=== PATIENT | male | born 1955 | race Caucasian/White ===

== ENCOUNTER 2022-04-20 16:08 | Day surgery (SDC) | payer MEDICARE, SELFPAY ==
[2022-04-20] VITALS (13 sets, daily range): BP systolic 154–174; BP diastolic 80–100; PULSE 51–69; RESP 16–18; TEMP 36.6; O2SAT 93–99; BMI 25.5
--- NOTE | 2022-04-20 16:20 | ECG_ITS ---
APPROVED REPORT Exam: Resting ECG HR:61 bpm ECG Measurements Heart Rate 61 AXES VT 90 P 80 QRSd 92 QRS -2 QT 399 T -14 QTc 402 Conclusion SINUS RHYTHM WITH SHORT VT INTERVAL SEPTAL MYOCARDIAL INFARCTION , PROBABLY OLD [40+ ms Q WAVE IN V1/V2] ST DEPRESSION, CONSIDER SUBENDOCARDIAL INJURY [0.1+ mV ST DEPRESSION] ABNORMAL ECG UNCONFIRMED REPORT Electronically signed by : Rolly Hollingsworth MD 04/21/2022 08:10:59
--- NOTE | 2022-04-20 16:30 | HMH.EDGENADL ---
Discharge Plan Disposition Patient Disposition: Admitted As Inpatient Condition: Fair Clinical Impressions Clinical Impression: Unstable angina pectoris Discharge ED Provider: Nick Souza General Adult HPI General Chief complaint: Chest Pain Stated complaint: SOA, painful breathing, cough Time Seen by Provider: 04/20/22 17:15 Mode of Arrival: Ambulatory Source of Information: Patient and Spouse Limitations: No Limitations Description of Symptoms (Recalled from ER Triage Doc. by RN): Pt presents with midsternum chest pain that worsens with exertion/movement/deep breathing that radiates to bilateral UE x 1 week. Hx of Afib. +Asa 81 mg Pt denies chest pain at this time. History of Present Illness HPI narrative: Patient states that for 1 week he has had intermittent chest discomfort that feels like a burning sensation in his bronchial tubes that goes up to his chest and down both arms and into his back. Usually occurs with activity but he is also had it with rest. He says usually he is able to take it easy and the pain will go away within about 5 minutes, but today he has had the pain off and on all day long. He is does not currently have any chest discomfort, says that his most recent episode went away just before coming to the emergency department. He says it is not associated with shortness of breath, nausea, or diaphoresis. He says that he has a prior history of atrial fibrillation. He does not currently see a intermediate accountant. He takes low-dose aspirin daily. He does not have diabetes, hypertension, or hyperlipidemia. He says he has been assigned to Dr. Power as his primary care provider, but has never seen him. Related Data Home Medications Medication Instructions Recorded Confirmed aspirin 81 mg capsule [address] [facility] 04/20/22 04/20/22 Allergies Allergy/AdvReac Type Severity Reaction Status Date / Time No Known Allergies Allergy Verified 04/20/22 16:53 [facility] Disclaimer: The information contained in this section may have been updated after the patient was seen, as this information can be updated by other users. Social History Smoking Status: Former smoker ROS Obtained: Yes Systems reviewed as appropriate & no additional complaints except as documented Constitutional Constitutional: Denies fever(s), Denies headache(s) and Denies weakness ENT Ears, Nose, Mouth, and Throat: Denies headache(s), Denies nasal discharge and Denies sore throat Cardiovascular Cardiovascular: Reports chest pain, Denies diaphoresis and Reports radiating jaw, neck or arm pain Respiratory Respiratory: Denies shortness of breath and Denies cough Gastrointestinal Gastrointestingal: Denies abdominal pain, constipation, diarrhea, nausea or vomiting Genitourinary Male Genitourinary: Denies difficulty urinating and Denies flank pain Musculoskeletal Musculoskeletal: Denies numbness Neurologic Neurologic: Denies headache(s), Denies numbness and Denies weakness Physical Exam General General appearance: alert and in no apparent distress Head Head exam: atraumatic and normocephalic Eye Eye exam: Present normal appearance and EOMI ENT ENT exam: Present mucous membranes moist Neck Neck exam: Present normal inspection and trachea midline Chest Chest inspection: Present normal inspection and symmetric chest wall rise Respiratory Respiratory exam: Present normal lung sounds bilaterally; Absent respiratory distress Cardiovascular Cardiovascular exam: Present regular rate, normal rhythm, normal heart sounds and other (Peripheral pulses 2+ all 4 extremities) Abdominal Exam Abdominal exam: Present soft and normal bowel sounds; Absent distention, tenderness, guarding, rebound or rigidity Extremities Exam Extremities exam: Present normal inspection Neurological Exam Neurological exam: Present alert and oriented X3 Psychiatric Psychiatric exam: Present normal affect and normal mood Skin Skin exam: Present warm and dry
--- NOTE | 2022-04-20 16:47 | PC.NURSE ---
rounded on pt no complaints at this time, @ [facility]
--- NOTE | 2022-04-20 16:52 | XR_ITS ---
PROCEDURE INFORMATION: Exam: XR Chest Exam date and time: 04/20/2022 4:52 PM Age: 66 years old Clinical indication: Pain; On breathing; Additional info: Chest pain when active, PT states the pain radiates in bilat arms x 1 wk. Former smoker. TECHNIQUE: Imaging protocol: Radiologic exam of the chest. Views: 2 views. COMPARISON: No relevant prior studies available. FINDINGS: Lungs: Lungs are clear. No consolidation or pulmonary edema. Pleural spaces: No pleural effusion. No pneumothorax. Heart/Mediastinum: Cardiomediastinal silhouette is normal. Bones/joints: No acute abnormality. IMPRESSION: No acute cardiopulmonary disease.
[2022-04-20 17:04] LABS: Basophils # 0.1 K/mm3 (0-0.2); Basophils % 0.9 % (0.1-2.0); Eosinophils # 0.1 K/mm3 (0.0-0.4); Eosinophils % 1.7 % (0.1-12.0); Hemoglobin 15.7 g/dL (14.1-18.0); Lymphocytes # 2.1 K/mm3 (0.7-4.5); Lymphocytes % 31.2 % (10-50); Mean Corpuscular HGB Conc 33.3 g/dL (31.8-35.4); Mean Corpuscular Hemoglobin 28.7 pg (27.0-31.2); Mean Corpuscular Volume 86.2 fl (80-94); Monocytes # 0.4 K/mm3 (0.1-1.0); Monocytes % 6.1 % (1.7-9.3); Neutrophils % 60.2 % (37.0-80.0); Platelet Count 192 K/mm3 (142-424); Red Blood Count 5.45 M/mm3 (4.60-6.20); Red Cell Distribution Width 13.4 % (11.5-17.5); White Blood Count 6.7 K/mm3 (4.8-10.8)
[2022-04-20 17:17] LABS: Chloride 106 mmol/L (98-107); Sodium 140 mmol/L (136-145)
[2022-04-20 17:20] LABS: Blood Urea Nitrogen 18 mg/dl (9-20); Calcium 9.2 mg/dl (8.4-10.2); Carbon Dioxide 24 mmol/L (22.0-30.0); Creatinine Clearance Estimated 75 mL/min (50-200); Estimated Glomerular Filt Rate 75 ml/min (>60); GFR (African American) 90 ML/MIN (>60); Glucose 102 mg/dl (74-100)
[2022-04-20 17:34] LABS: Coronavirus 19, PCR Not Detected (NotDetected); Influenza A, PCR Not Detected (NotDetected); Influenza B, PCR Not Detected (NotDetected)
[2022-04-20 18:07] LABS: Troponin I 0.01 ng/ml (0.00-0.034)
--- NOTE | 2022-04-20 18:21 | PC.NURSE ---
MOHINDER PARIKH speaking with Dr. Cowan
--- NOTE | 2022-04-20 19:00 | PC.NURSE ---
HS called collaborative physician, no stemi noted at this time. taking pt to the collaborative physician mo
--- NOTE | 2022-04-20 19:10 | PC.NURSE ---
1845- [facility] pumping supervisor contacted by Dr Cowan and would like the quality lab assoc team called in at this time. Paged quality lab assoc team lens and frames prescription clerk at this time. 184- Dominique BENITEZ returned call at this time 184- José BENITEZ returned call at this time 184- La Thompson returned call at this time
--- NOTE | 2022-04-20 19:19 | PC.NURSE ---
Spoke with cardiac cath lab manager nurse regarding preparation of patient. Pt placed in gown. Personal belongings placed in bag with patient sticker. Bilateral femoral and right radial sites prepped. PIV 20g Bilateral AC. Informed consent not obtained at this time, awaiting MD to report to bedside to discuss procedure, risks, & benefits.
[2022-04-20 20:02] LABS: Activated Partial Thrombo Time 25.6 seconds (22.8-30.6); INR 0.95 (0.9-1.1); Prothrombin Time 10.3 seconds (10.1-12.5)
[2022-04-20 20:16] LABS: CATHL Activated Clotting Time 254 SEC (74-125)
== END 2022-04-20 19:45 ==
LOC: ER 19:42 → SDC 19:46 → 2ND 20:21 → SDC 05-14 03:43
PROVIDERS: Emergency Provider Emergency Medicine; PCP Emergency Medicine; Visit Provider Internal Medicine
DX: I25.110 Atherosclerotic heart disease of native coronary artery with unstable angina pectoris (principal); I48.91 Unspecified atrial fibrillation; Z20.822 Contact with and (suspected) exposure to COVID-19
CPT/HCPCS: 71046; 80048; 84484; 85025; 85347; 85610; 85730; 93005; 93458; 99152; 99285; C1725; C1769; C9803; J1644; Q9967; U0003; U0005

== ENCOUNTER 2022-06-08 09:53 | Outpatient (RCR) | payer MEDICARE, SELFPAY | END 2022-06-08 23:59 | disposition home or self-care (01) | LOC: PT 09:53 | PROVIDERS: Visit Provider Thoracic Surgery (Cardiothoracic Vascular Surgery) | DX: I25.10 Atherosclerotic heart disease of native coronary artery without angina pectoris (principal); Z95.1 Presence of aortocoronary bypass graft ==

== ENCOUNTER → 2022-09-28 14:20 | Outpatient (CLI) | payer MEDICARE, SELFPAY ==
--- NOTE | 2022-09-28 14:27 | CA_ITS ---
APPROVED REPORT EXAM: Comprehensive 2D, Doppler, and color-flow Echocardiogram First Leveler: Chantel Dickson RT(R) Ht: 5 ft 7 in Wt: 153lbs BSA: 1.80 BP: 110/44 mmHg Indications: SOA, ex smoker, HTN, hyperlipidemia, CAD, AFIB, CABG, pleural effusion 2D Dimensions LVOT 1.92 cm (M/F) 1.5-2.5 LVEF (Almonte's) 68.40 % M: 52 - 72 LV Volume 108.70 mL M: 62 - 150 LV Volume Index 60.06 mL/m2 M: 34 - 74 LA Volume 59.20 mL LA Volume Index 32.71 mL/m2 (M/F) 16-34 M-Mode Dimensions RVDd 3.61 cm (0.9-2.6) LA Diam 4.42 cm (1.9-4.0) LVDd 4.90 cm (3.5-5.7) Ao Diam 3.28 cm (2.0-3.7) LVDs 3.27 cm (3.5-5.7) IVSd 0.84 cm (0.6-1.1) PWd 0.68 cm (0.6-1.1) EF (Teich) 61.70% FS 33.30% EDV (Teich) 112.80 mL ESV (Teich) 43.20 mL LV Diastology E Decel Time 200.00 (160-240 msec) E/A Ratio 3.3 MED E' 5.70 (< 7 cm/sec) E'/MED E' Ratio 18.93 (>14) LAT E' 12.50 (<10 cm/sec) E/LAT E' Ratio 8.63 (>14) Mitral Valve MV E Max Leonel. 108.00 (40-130 cm/s) MV A Velocity 33.00 (40-130 cm/s) E/A Ratio 3.29 MV Decel. Time 200.00 (160-240 ms) MV PHT 59.00 ms Pulmonary Valve PV Peak Velocity 80.00 (50-150 cm/s) Tricuspid Valve TR P. Velocity 258.00 cm/s Left Ventricle The left ventricle is normal size. The left ventricular systolic function is normal. The left ventricular ejection fraction is within the normal range. There is increased LV wall thickness. There is normal LV segmental wall motion. Diastolic function is indeterminate. LVEF is 60%. Right Ventricle The right ventricle is normal size. The right ventricular systolic function is normal. Atria The left atrium size is normal. The right atrium size is normal. Aortic Valve The aortic valve is trileaflet. The aortic valve is mildly thickened. There is no aortic valvular stenosis. Trace aortic regurgitation is present. Mitral Valve The mitral valve is normal in structure. No evidence of mitral valve stenosis. Mild mitral regurgitation. Tricuspid Valve The tricuspid valve is thin and pliable. Mild tricuspid regurgitation. RVSP is 27 mmHg + RA pressure Pulmonic Valve The pulmonary valve is normal in structure. Mild pulmonic regurgitation. Great Vessels The aortic root is normal in size. The ascending aorta is normal in size. The IVC is not well visualized. Pericardium There is no pericardial effusion. Other Information Study Quality: Fair Conclusion Normal biventricular systolic function. No significant valvular stenosis or regurgitation. Electronically signed by : Herlinda Muñoz, 09/29/2022 19:37:43
== END ==
PROVIDERS: PCP Emergency Medicine; Visit Provider Nurse Practitioner Family
DX: E78.5 Hyperlipidemia, unspecified (principal); I10 Essential (primary) hypertension; I25.10 Atherosclerotic heart disease of native coronary artery without angina pectoris; I48.0 Paroxysmal atrial fibrillation; I65.29 Occlusion and stenosis of unspecified carotid artery; Z95.1 Presence of aortocoronary bypass graft
CPT/HCPCS: 93306

== ENCOUNTER 2023-06-05 09:33 | Outpatient (CLI) | payer MEDICARE, SELFPAY ==
[2023-06-05 10:25] LABS: Basophils # 0.1 K/mm3 (0-0.2); Basophils % 0.9 % (0.1-2.0); Eosinophils # 0.2 K/mm3 (0.0-0.4); Eosinophils % 3.2 % (0.1-12.0); Hematocrit 42.8 % (42.0-52.0); Hemoglobin 14.3 g/dL (14.1-18.0); Lymphocytes # 2.1 K/mm3 (0.7-4.5); Lymphocytes % 36.9 % (10-50); Mean Corpuscular HGB Conc 33.4 g/dL (31.8-35.4); Mean Corpuscular Hemoglobin 30.8 pg (27.0-31.2); Mean Corpuscular Volume 92.3 fl (80-94); Mean Platelet Volume 9.4 fl (7.4-10.4); Monocytes # 0.4 K/mm3 (0.1-1.0); Monocytes % 6.2 % (1.7-9.3); Neutrophils % 52.8 % (37.0-80.0); Platelet Count 129 K/mm3 (142-424); Red Blood Count 4.64 M/mm3 (4.60-6.20); Red Cell Distribution Width 13.4 % (11.5-17.5); White Blood Count 5.7 K/mm3 (4.8-10.8)
[2023-06-05 10:56] LABS: Alanine Aminotransferase 28 U/L (12-78); Albumin Level 4.1 g/dl (3.5-5.0); Alkaline Phosphatase 63 U/L (38-126); Anion Gap 8.8 mEq/L (5-15); Aspartate Amino Transferase 29 U/L (17-59); Bilirubin,Direct 0.2 mg/dl (0.0-0.4); Bilirubin,Indirect 0.9 mg/dL (0.0-0.9); Bilirubin,Total 1.1 mg/dl (0.2-1.3); Bilirubin,Unconjugated 0.9 mg/dL (0.0-1.1); Blood Urea Nitrogen 15 mg/dl (9-20); Calcium 9.5 mg/dl (8.4-10.2); Carbon Dioxide 28 mmol/L (22.0-30.0); Chloride 109 mmol/L (98-107); Chol/HDL Ratio 3.5 (1-3.5); Cholesterol 138 mg/dl (140-200); Estimated Glomerular Filt Rate 96 ml/min (>60); GFR (African American) 116 ML/MIN (>60); Glucose 97 mg/dl (74-100); HDL Cholesterol 40 mg/dl (40-60); Potassium 3.8 mmoL/L (3.5-5.1); Sodium 142 mmol/L (136-145); Total Protein,Serum 6.3 g/dl (6.3-8.2); Triglycerides 159 mg/dl (30-150); VLDL Cholesterol 32 mg/dL (0-40)
[2023-06-05 11:13] LABS: Free T4 (Free Thyroxine) 0.98 ng/dl (0.78-2.19)
[2023-06-05 11:28] LABS: Thyroid Stimulating Hormone 2.02 uIU/mL (0.465-4.68)
== END 2023-06-05 23:59 | disposition home or self-care (01) ==
PROVIDERS: Visit Provider Physician Assistant
DX: E11.9 Type 2 diabetes mellitus without complications (principal); R00.1 Bradycardia, unspecified; I65.29 Occlusion and stenosis of unspecified carotid artery; I25.10 Atherosclerotic heart disease of native coronary artery without angina pectoris; Z95.1 Presence of aortocoronary bypass graft; I10 Essential (primary) hypertension; E78.5 Hyperlipidemia, unspecified; I48.0 Paroxysmal atrial fibrillation; R06.00 Dyspnea, unspecified; I11.9 Hypertensive heart disease without heart failure; I63.9 Cerebral infarction, unspecified
CPT/HCPCS: 36415; 80048; 80061; 80076; 84439; 84443; 85025

== ENCOUNTER 2023-06-29 13:01 | Outpatient (CLI) | payer MEDICARE, SELFPAY ==
[2023-06-29 13:27] LABS: Basophils # 0.1 K/mm3 (0-0.2); Basophils % 0.9 % (0.1-2.0); Eosinophils # 0.3 K/mm3 (0.0-0.4); Eosinophils % 3.6 % (0.1-12.0); Hemoglobin 13.7 g/dL (14.1-18.0); Lymphocytes # 2.4 K/mm3 (0.7-4.5); Lymphocytes % 35.5 % (10-50); Mean Corpuscular HGB Conc 33.5 g/dL (31.8-35.4); Mean Corpuscular Volume 89.5 fl (80-94); Mean Platelet Volume 9.1 fl (7.4-10.4); Monocytes # 0.5 K/mm3 (0.1-1.0); Monocytes % 7.5 % (1.7-9.3); Neutrophils # 3.6 K/mm3 (1.8-7.8); Neutrophils % 52.5 % (37.0-80.0); Platelet Count 144 K/mm3 (142-424); Red Blood Count 4.58 M/mm3 (4.60-6.20); Red Cell Distribution Width 13.1 % (11.5-17.5); White Blood Count 6.9 K/mm3 (4.8-10.8)
[2023-06-29 15:02] LABS: Alanine Aminotransferase 35 U/L (12-78); Albumin Level 4.2 g/dl (3.5-5.0); Alkaline Phosphatase 69 U/L (38-126); Aspartate Amino Transferase 35 U/L (17-59); Bilirubin,Direct 0.1 mg/dl (0.0-0.4); Bilirubin,Indirect 0.6 mg/dL (0.0-0.9); Bilirubin,Total 0.7 mg/dl (0.2-1.3); Bilirubin,Unconjugated 0.6 mg/dL (0.0-1.1); Cholesterol 145 mg/dl (140-200); Total Protein,Serum 6.4 g/dl (6.3-8.2); Triglycerides 213 mg/dl (30-150); VLDL Cholesterol 43 mg/dL (0-40)
[2023-06-29 15:13] LABS: Direct LDL Cholesterol 62.54 mg/dL (100-129)
[2023-06-29 16:58] LABS: Chol/HDL Ratio 2.7 (1-3.5); HDL Cholesterol 53 mg/dl (40-60)
== END 2023-06-29 23:59 | disposition home or self-care (01) ==
PROVIDERS: Visit Provider Physician Assistant
DX: I11.9 Hypertensive heart disease without heart failure (principal); I25.10 Atherosclerotic heart disease of native coronary artery without angina pectoris; E78.5 Hyperlipidemia, unspecified; I48.0 Paroxysmal atrial fibrillation; I65.29 Occlusion and stenosis of unspecified carotid artery; Z95.1 Presence of aortocoronary bypass graft; J90 Pleural effusion, not elsewhere classified; Z87.891 Personal history of nicotine dependence
CPT/HCPCS: 36415; 80061; 80076; 85025

== ENCOUNTER 2023-07-11 09:15 | Emergency (ER) | payer MEDICARE, SELFPAY ==
[2023-07-11] VITALS (10 sets, daily range): BP systolic 100–137; BP diastolic 58–95; PULSE 60–151; RESP 12–17; TEMP 36.4–36.6; O2SAT 97–98; BMI 24.5
--- NOTE | 2023-07-11 09:14 | ECG_ITS ---
APPROVED REPORT Exam: Resting ECG HR:139 bpm ECG Measurements Heart Rate 139 AXES QRSd 89 QRS 41 QT 235 T 94 QTc 316 Conclusion ATRIAL FIBRILLATION WITH RAPID VENTRICULAR RESPONSE POSSIBLE RIGHT VENTRICULAR CONDUCTION DELAY [RSR (QR) IN V1/V2] NONSPECIFIC ST & T-WAVE ABNORMALITY ABNORMAL RHYTHM ECG Electronically signed by : ARLENE PRABHAKAR, 07/11/2023 16:11:43
--- NOTE | 2023-07-11 09:18 | XR_ITS ---
FINAL REPORT CLINICAL HISTORY: sternal chest pain, hx of afib COMPARISON: None FINDINGS: The heart size is mildly enlarged. Sternotomy wires are noted. There is no focal infiltrate or edema. There are no pleural effusions. There is no pneumothorax. There is no osseous abnormality. IMPRESSION: No acute cardiopulmonary process Reviewed, Interpreted and Dictated by Mike Zaidi MD Transcribed by Ashlie Del Cid Authenticated and [facility]
--- NOTE | 2023-07-11 09:20 | PC.NURSE ---
Dr. Vieira at [facility] for pt eval
--- NOTE | 2023-07-11 09:24 | PC.NURSE ---
RAD at for CXR
[2023-07-11] MEDS: LACTATED RINGERS 1000ML 1,000 ML 999 ML IV (09:29)
[2023-07-11 09:34] LABS: Basophils # 0.1 K/mm3 (0-0.2); Eosinophils # 0.3 K/mm3 (0.0-0.4); Eosinophils % 3.7 % (0.1-12.0); Hematocrit 44.5 % (42.0-52.0); Hemoglobin 14.9 g/dL (14.1-18.0); Lymphocytes # 2.1 K/mm3 (0.7-4.5); Lymphocytes % 29.8 % (10-50); Mean Corpuscular HGB Conc 33.4 g/dL (31.8-35.4); Mean Corpuscular Hemoglobin 30.3 pg (27.0-31.2); Mean Corpuscular Volume 90.8 fl (80-94); Mean Platelet Volume 8.9 fl (7.4-10.4); Monocytes # 0.5 K/mm3 (0.1-1.0); Monocytes % 6.7 % (1.7-9.3); Neutrophils # 4.1 K/mm3 (1.8-7.8); Neutrophils % 58.7 % (37.0-80.0); Platelet Count 153 K/mm3 (142-424); Red Cell Distribution Width 13.3 % (11.5-17.5); White Blood Count 6.9 K/mm3 (4.8-10.8)
[2023-07-11 09:37] LABS: Alanine Aminotransferase 32 U/L (12-78); Albumin Level 4.5 g/dl (3.5-5.0); Albumin/Globulin Ratio 1.7 (1.1-1.8); Alkaline Phosphatase 82 U/L (38-126); Anion Gap 13.4 mEq/L (5-15); Aspartate Amino Transferase 35 U/L (17-59); Bilirubin,Total 1.3 mg/dl (0.2-1.3); Blood Urea Nitrogen 12 mg/dl (9-20); Calcium 9.6 mg/dl (8.4-10.2); Carbon Dioxide 28 mmol/L (22.0-30.0); Chloride 104 mmol/L (98-107); Creatinine Clearance Estimated 70 mL/min (50-200); Estimated Glomerular Filt Rate 74 ml/min (>60); GFR (African American) 90 ML/MIN (>60); Globulin 2.7 g/dL (1.3-3.2); Glucose 113 mg/dl (74-100); Magnesium 1.9 mg/dl (1.6-2.3); Potassium 3.4 mmoL/L (3.5-5.1); Sodium 142 mmol/L (136-145); Total Protein,Serum 7.2 g/dl (6.3-8.2)
--- NOTE | 2023-07-11 09:37 | [facility].EDCP ---
Discharge Plan Disposition Patient Disposition: Home, Self-Care Condition: Good Prescriptions Prescriptions: New metoprolol tartrate 25 mg tablet 25 mg PO BID Qty: 60 0RF No Action multivitamin [Daily Multi-Vitamin] Tablet 1 tab PO DAILY fexofenadine [Allergy Relief (fexofenadine)] 180 mg tablet 180 mg PO DAILY bisacodyl [Gentle Laxative (bisacodyl)] 5 mg tablet,delayed release (DR/EC) 5 mg PO HS aspirin 81 mg capsule 81 mg PO DAILY Qty: 90 3RF furosemide 40 mg tablet 40 mg PO DAILY PRN (Reason: edema) Qty: 90 3RF metoprolol tartrate 25 mg tablet 12.5 mg PO BID Qty: 180 3RF tamsulosin 0.4 mg capsule See Rx Instructions .ROUTE .COMPLEX Qty: 90 0RF Dose Instruction: Take 1 capsule by mouth once daily Rx Instructions: Take 1 capsule by mouth once daily atorvastatin 80 mg tablet 80 mg PO HS Qty: 90 3RF Referrals Follow up/Referrals: Provider,MD Tatianna [Primary Care Provider] - See instructions Jose Muñoz MD [Staff Physician] - 07/17/23 1:00 pm Activity Restrictions/Add. Instructions Additional Instructions/Restrictions: You were evaluated in the emergency department today. Please follow-up closely with Dr. Pate 07/17/23 at 1:00 PM. We are increasing your metoprolol dose from 12.5 mg twice a day to 25 mg twice a day. I have provided you with a refill of this in case you need it. Follow-up with your primary care provider as well. Return to the emergency department for new or worsening symptoms. Clinical Impressions Clinical Impression: PAF (paroxysmal atrial fibrillation), Atrial fibrillation with RVR, Hypokalemia Instructions Patient Instructions: DI for Atrial Fibrillation, DI for Atypical Chest Pain Discharge ED Provider: Ioana Vieira General Chief Complaint: Chest Pain Stated Complaint: chest pain Time Seen by Provider: 07/11/23 09:18 Mode of Arrival: Ambulatory Source of Information: Patient Limitations: No Limitations Description of Symptoms (Recalled from ER Triage Doc. by RN): pt to ed c/o substernal cp that woke him up from sleep this am. pt states he has been under a lot of stress. pt denies n/v. pt describes the pain as discomfort. pt reports to following with cardiology. pt states a hx of afib. History of Present Illness HPI narrative: This patient is a 68-year-old male with a history of hypertension, hyperlipidemia, CAD status post CABG, and paroxysmal atrial fibrillation presenting to the emergency department for evaluation with concern for chest pain that woke him up this morning from sleep. He describes it as a pressure, and it started around 730 this morning. He believes this is when he flipped into atrial fibrillation. Patient states that he is been under a lot of stress. He notes that he did a lot of work on Sunday, and he thinks he may have done too much. He also notes that he had poor oral intake and has not maintain good hydration. He notes he is down 3 pounds in the last 24 hours. He also has not been sleeping, as he is under emotional distress because they lost their family pet. He notes that he follows with cardiology for his CAD and heart disease. He had atrial fibrillation when he had a CABG 05/04, but he states that it went away without cardioversion after his electrolytes were normalized. He notes that he has been compliant with metoprolol therapy at home, and on medical record review he takes 12.5 mg twice daily. He does not take any anticoagulation, though he is on a daily aspirin. He denies any fevers, shortness of breath, abdominal pain, vomiting, changes in bowel movements, or other concerns. Related Data Home Medications Medication Instructions Recorded Confirmed bisacodyl 5 mg tablet,delayed 5 mg PO HS 06/12/22 06/13/23 release (Gentle Laxative (bisacodyl)) fexofenadine 180 mg tablet 180 mg PO DAILY 06/12/22 06/13/23 (Allergy Relief (fexofenadine)) multivitamin (Daily Multi-Vitamin 1 tab PO DAILY 06/12/22 06/13/23 tablet) Previous Rx's Medication Instructions Recorded aspirin 81 mg capsule 81 mg PO DAILY heart health #90 06/12/22 caps furosemide 40 mg tablet 40 mg PO DAILY PRN edema #90 tabs 06/12/22 metoprolol tartrate 25 mg tablet 12.5 mg (1/2 x 25 mg) PO BID #180 09/12/22 tabs tamsulosin 0.4 mg capsule See Rx Instructions .Route 06/13/23 .COMPLEX #90 caps atorvastatin 80 mg tablet 80 mg PO HS #90 tabs 06/14/23 metoprolol tartrate 25 mg tablet 25 mg PO BID #60 tabs 07/11/23 Allergies Allergy/AdvReac Type Severity Reaction Status Date / Time No Known Allergies Allergy Verified 06/13/23 09:25 [facility] Disclaimer: The information contained in this section may have been updated after the patient was seen, as this information can be updated by other users. Medical History (Updated 07/11/23 @ 12:53 by Ioana Vieira DO) Pleural effusion Stenosis of carotid artery PAF (paroxysmal atrial fibrillation) HLD (hyperlipidemia) HTN (hypertension) Coronary artery disease Surgical History (Updated 07/11/23 @ 13:35 by Antonina Clay APRN) S/P left atrial appendage ligation S/P CABG x 4 S/P cardiac cath Social History Smoking Status: Former smoker alcohol intake: current current occupational status: employed Travel in the last 8 weeks: Inside the [place] ROS Obtained: Yes All systems reviewed & no additional complaints except as documented Physical Exam General General appearance: alert and in no apparent distress Head Head exam: atraumatic and normocephalic Eye Eye exam: Present normal appearance, PERRL and EOMI ENT ENT exam: Present normal exam, normal oropharynx, mucous membranes moist and normal external ear exam Neck Neck exam: Present normal inspection, full ROM and trachea midline; Absent tenderness Chest Chest inspection: Present normal inspection and symmetric chest wall rise; Absent tenderness Respiratory Respiratory exam: Present normal lung sounds bilaterally; Absent respiratory distress, wheezes, stridor or accessory muscle use Cardiovascular Cardiovascular exam: Present tachycardia and irregular rhythm Abdominal Exam Abdominal exam: Present soft; Absent distention, tenderness or guarding Extremities Exam Extremities exam: Present normal inspection, full ROM and normal capillary refill; Absent tenderness or edema Back Exam Back exam: Present normal inspection and full ROM; Absent tenderness Neurological Exam Neurological exam: Present alert, oriented X3, CN II-XII intact and normal gait; Absent motor sensory deficit Psychiatric Psychiatric exam: Present normal affect and normal mood Skin Skin exam: Present warm and dry HEART Score HEART Score HEART Score assessment performed?: Yes History (anamnesis): Slightly suspicious ECG: Non-specific disturbance Age: >65 years Risk factors: Atherosclerosis history Troponin: </= normal limit HEART Score: 5 Critical Care Critical Care Time Critical Care Time: Yes Attestation: On 07/11/23, the high probability of a clinically significant, sudden or life threatening deterioration of the following system(s) required my full and direct attention, intervention and personal management. The time I documented below is in addition to time spent performing reported procedures but includes the following listed in this critical care notation. Total Time Total Critical Care Time: 30 Medical Decision Making Medical Records Medical records reviewed: Yes I reviewed the patient's medical records. [place] Inquiry Pt receiving controlled substance: No Vital Signs Vital Signs: 07/11/23 09:16 07/11/23 09:20 07/11/23 09:30 Temperature 97.9 F Temperature Source Oral Pulse Rate 92 H 137 H Pulse Rate [Left Radial] 151 H Respiratory Rate 15 14 Blood Pressure 136/95 H 121/79 Blood Pressure [Right Arm] 136/95 H Blood Pressure Mean Blood Pressure Mean [Right Arm] 108 Blood Pressure Source Blood Pressure Position 02 Sat by Pulse Oximetry 97 98 97 Oxygen Delivery Method Room Air 07/11/23 10:01 07/11/23 10:58 07/11/23 11:01 Temperature Temperature Source Pulse Rate 66 69 60 Pulse Rate [Left Radial] Respiratory Rate 12 16 14 Blood Pressure 137/79 127/80 100/58 L Blood Pressure [Right Arm] Blood Pressure Mean Blood Pressure Mean [Right Arm] Blood Pressure Source Blood Pressure Position 02 Sat by Pulse Oximetry 97 98 98 Oxygen Delivery Method 07/11/23 11:30 07/11/23 12:01 07/11/23 12:30 Temperature Temperature Source Pulse Rate 67 64 79 Pulse Rate [Left Radial] Respiratory Rate 17 Blood Pressure 114/77 135/80 135/82 Blood Pressure [Right Arm] Blood Pressure Mean 88 98 Blood Pressure Mean [Right Arm] Blood Pressure Source Blood Pressure Position 02 Sat by Pulse Oximetry 98 98 97 Oxygen Delivery Method 07/11/23 12:55 Temperature 97.6 F Temperature Source Oral Pulse Rate 89 Pulse Rate [Left Radial] Respiratory Rate 17 Blood Pressure 121/81 Blood Pressure [Right Arm] Blood Pressure Mean Blood Pressure Mean [Right Arm] Blood Pressure Source Automatic Cuff Blood Pressure Position Sitting 02 Sat by Pulse Oximetry Oxygen Delivery Method Room Air Lab Data Labs: Lab Results 07/11/23 09:18: WBC 6.9, RBC 4.90, Hgb 14.9, Hct 44.5, MCV 90.8, MCH 30.3, MCHC 33.4, RDW 13.3, Plt Count 153, MPV 8.9, Neut % (Auto) 58.7, Lymph % (Auto) 29.8, [place] % (Auto) 6.7, Eos % (Auto) 3.7, Baso % (Auto) 1.0, Neut # (Auto) 4.1, Lymph # (Auto) 2.1, [place] # (Auto) 0.5, Eos # (Auto) 0.3, Baso # (Auto) 0.1, PT 11.2, INR 1.04, APTT 26.3, Sodium 142, Potassium 3.4 L, Chloride 104, Carbon Dioxide 28, Anion Gap 13.4, BUN 12, Creatinine 1.00, Estimated Creat Clear 70, Estimated GFR 74, Est GFR ( Amer) 90, Glucose 113 H, Calcium 9.6, Magnesium 1.9, Total Bilirubin 1.3, AST 35, ALT 32, Alkaline Phosphatase 82, Troponin I < 0.01, NT-Pro-B Natriuret Pep 461 H, Total Protein 7.2, Albumin 4.5, Globulin 2.7, Albumin/Globulin Ratio 1.7, TSH 1.62, Thyroxine (T4) 9.3 07/11/23 12:00: Troponin I < 0.01 07/11/23 09:18 07/11/23 09:18 Response Orders (Tests/Meds): ED MEDICATIONS Discontinued Medications Generic Name Dose Route Start Last Admin Trade Name Freq PRN Reason Stop Dose Admin Diltiazem HCl 15 mg 07/11/23 10:42 07/11/23 10:51 Diltiazem 25mg/5ml Vial IV 07/11/23 10:43 15 mg ONCE ONE Administration Lactated Ringer's 1,000 mls @ 999 mls/hr 07/11/23 09:24 07/11/23 09:29 Lactated Ringer's 1000 Ml Bag IV 07/11/23 10:24 999 mls/hr .Q1H1M ONE Administration Potassium Chloride/Water 100 mls @ 100 mls/hr 07/11/23 09:45 07/11/23 12:10 Potassium Chloride 10meq/100ml Ivpb IV 07/11/23 11:44 Not Given Q1H GANGA Diltiazem HCl 100 mg/ Sodium 100 mls @ 10 mls/hr 07/11/23 10:43 07/11/23 12:09 Chloride IV 08/10/23 10:42 Not Given .Q10H GANGA Protocol 10 MG/HR Metoprolol Tartrate 5 mg 07/11/23 09:59 07/11/23 10:20 Metoprolol Tartrate 5mg/5ml Vial IV 08/10/23 09:58 5 mg Q5MINP PRN Administration Heart Rate- High Metoprolol Tartrate 25 mg 07/11/23 09:59 07/11/23 10:04 Metoprolol Tartrate 50mg Tablet PO 07/11/23 10:00 25 mg ONCE ONE Administration Potassium Chloride 40 meq 07/11/23 09:45 07/11/23 10:03 Potassium Chloride 20meq Tab PO 07/11/23 09:46 40 meq ONCE ONE Administration ORDERS Category Date Time Status Cardiology Consult [Consult to Cardiology] [CONS] Cons 07/11/23 10:43 Active Routine CXR --portable [XR chest portable] Stat Exams 07/11/23 09:18 Completed Activated Partial Thrombo Time Stat Lab 07/11/23 09:18 Completed Complete Blood Count Auto Diff Stat Lab 07/11/23 09:18 Completed Comprehensive Metabolic Panel Stat Lab 07/11/23 09:18 Completed Magnesium Stat Lab 07/11/23 09:18 Completed NT Pro Brain Natriuretic Pep. Stat Lab 07/11/23 09:18 Completed Prothrombin Time INR Stat Lab 07/11/23 09:18 Completed T4 (Thyroxine) Stat Lab 07/11/23 09:18 Completed Thyroid Stimulating Hormone Stat Lab 07/11/23 09:18 Completed Troponin I Q3H Lab 07/11/23 12:00 Completed Troponin I Stat Lab 07/11/23 09:18 Completed ECG Data Tracing #1: Attestation: I reviewed this ECG and interpreted as documented below: ECG Narrative: Atrial fibrillation with a ventricular rate of [address] changes concerning for ischemia ECG initial impression date: 07/11/23 ECG initial impression time: 09:16 Tracing #2: Attestation: I reviewed this ECG and interpreted as documented below: ECG Narrative: Atrial fibrillation with a ventricular rate of [address] changes concerning for ischemia. ECG initial impression date: 07/11/23 ECG initial impression time: 11:03 MDM Narrative Medical Decision Narrative: In summary, this patient is a 68-year-old male presenting to the Emergency Department for evaluation of chest pain that woke him from sleep around 730 this morning with high heart rate. Differential diagnoses considered include but are not limited to ACS, atrial fibrillation, electrolyte derangements, dehydration. Ruling out the most morbid conditions drove assessment. It should be noted patient's history includes CAD status post CABG, hypertension, hyperlipidemia, and paroxysmal atrial fibrillation which may or may not be at goal therapy. This complicates all aspects of care by increasing patient's risk for morbidity. I reviewed patient's past medical records and noted previous evaluation by cardiology 06/13/2023. They noted that he had left atrial appendage clip in 2022. He had been doing well at that visit. On exam, the patient is lying in bed in no acute distress. He is alert and oriented, GCS of 15. He does have high heart rate with atrial fibrillation with a rate in the 130s to 140s. Vitals otherwise reassuring. Workup included CBC, CMP, troponin, magnesium, TSH, T4, BNP, chest x-ray, and EKG. EKG demonstrates atrial fibrillation with rapid ventricular response but no other acute concerning abnormalities. I had a discussion with the patient regarding management of his atrial fibrillation. I advised that since he could tell that he went into atrial fibrillation around 730 this morning and has had previous left atrial appendage clip, it would be safe to attempt electrical cardioversion. He advised that he did not have to have this last time, so he does not want to proceed with at this time. I also offered rate control with medications, such as metoprolol since that is what he takes at home. He advised that he just wants his electrolytes checked because he thinks that they are out of whack, and correction of his electrolytes will fix his atrial fibrillation. He notes this is what happened last time. Since the patient states that he is volume down with weight loss and poor oral intake, he was given a bolus of IV fluids. I independently interpreted x-ray prior to the radiologist read and noted no acute focal consolidation. Please see their read for final interpretation. Labs were obtained that demonstrated no acute concerning abnormalities aside from mild hypokalemia with negative troponins x 2. He did have mildly low potassium, so replacement was ordered. I did discuss with him rate control with metoprolol again. He has not yet taken his metoprolol this morning. He is agreeable to attempting rate control with metoprolol PO and IV. Rate control is not achieved, so I then discussed the case with cardiology who recommended diltiazem bolus and drip. He was given diltiazem bolus of 10 mg with rate control with a heart rate in the 60s and 70s. Given this, no drip was initiated. Cardiology came to evaluated the patient and recommended admission, as it for continued monitoring to make sure that he maintains rate control. Patient does not want to be admitted, so he would like to go home. Given this, cardiology recommended increasing her metoprolol and follow-up outpatient 07/17/2023. Patient agreeable with this. Strict return precautions were given.
[2023-07-11 09:40] LABS: Activated Partial Thrombo Time 26.3 seconds (22.8-30.6); INR 1.04 (0.9-1.1); Prothrombin Time 11.2 seconds (10.1-12.5)
[2023-07-11 09:53] LABS: Troponin I < 0.01 ng/ml (0.00-0.034)
[2023-07-11 09:54] LABS: NT Pro Brain Natriuretic Pep. 461 pg/mL (0-125); T4 (Thyroxine) 9.3 ug/dl (5.53-11.0)
[2023-07-11] MEDS: POTASSIUM CHLORIDE 20MEQ TAB 40 MEQ PO (10:03)
[2023-07-11] MEDS: METOPROLOL TARTRATE 50MG TABLET 25 MG PO (10:04)
[2023-07-11 10:08] LABS: Thyroid Stimulating Hormone 1.62 uIU/mL (0.465-4.68)
[2023-07-11] MEDS: METOPROLOL TARTRATE 5MG/5ML VIAL 5 MG IV ×2 (10:15→10:20)
--- NOTE | 2023-07-11 10:26 | PC.NURSE ---
Pt ambulatory to bathroom
--- NOTE | 2023-07-11 10:38 | PC.NURSE ---
spoke with olga campbell who gave verbal orders for diltizem
[2023-07-11] MEDS: dilTIAZem 25MG/5ML VIAL 15 MG IV (10:51)
--- NOTE | 2023-07-11 11:01 | ECG_ITS ---
APPROVED REPORT Exam: Resting ECG HR:66 bpm ECG Measurements Heart Rate 66 AXES QRSd 94 QRS 33 QT 378 T 70 QTc 391 Conclusion ATRIAL FIBRILLATION POSSIBLE RIGHT VENTRICULAR CONDUCTION DELAY [RSR (QR) IN V1/V2] Nonspecific ST/T wave change without acute changes from prior EKG. Electronically signed by : ARLENE PRABHAKAR, 07/11/2023 16:10:51
[2023-07-11] MEDS: KCl 10mEq/100ml 100 ML 100 MEQ IV (11:05)
--- NOTE | 2023-07-11 11:15 | PC.NURSE ---
Antonina Clay at bedside to see patient.
--- NOTE | 2023-07-11 11:33 | PC.NURSE ---
per olga campbell, increase metoprolol 25mg BID, and follow up in the clinic SundayJuly 16 1pm.
[2023-07-11 12:41] LABS: Troponin I < 0.01 ng/ml (0.00-0.034)
--- NOTE | 2023-07-11 12:48 | PC.NURSE ---
Pt ambulatory to bathroom
--- NOTE | 2023-07-11 13:31 | P.CONCA_ITS ---
History of Present Illness History of Present Illness Consult date: 07/11/23 Requesting physician: Ioana Vieira Consult reason: atrial fibrillation Chief complaint: chest discomfort and racing of the heart History of present illness: This is a 68-year-old white gentleman who presented to the emergency department with racing of the heart and chest discomfort. He states that he was asleep this morning and woke up around 730 this morning with discomfort in his chest. He states that he felt his heart racing and knew that he was in atrial fibrillation. The patient does have a history of coronary artery disease status post coronary artery bypass grafting and left atrial appendage ligation. He states that he had atrial fibrillation following the surgery and was in atrial fibrillation for about a month or so and has not had any episodes of atrial fibrillation since that time until this morning. He also has a past medical history of hypertension and hyperlipidemia. The patient states that because of the discomfort in his chest and racing of the heart he decided to come to the emergency department. He was found to be in atrial fibrillation with RVR. His heart rate was between 120 to 150 bpm. The patient was given his normal oral dose of metoprolol without improvement in his heart rate. He was also then given IV metoprolol 5 mg x 2 doses with no improvement in his heart rate. Cardiology was contacted by phone and a diltiazem bolus and drip was recommended. He was given the diltiazem bolus and he did rate control to the 60s and the drip was not started. During my examination of the patient he denies any chest pain or pressure. He states that the chest discomfort has resolved since his heart rate has improved. He denies any shortness of breath or edema. He denies any fever, chills, nausea, vomiting, diarrhea, PND or orthopnea. He states that he has been really working hard at home outside to keep up with jobs around his house and thinks that he may have gotten a little bit dehydrated. He also states that his dog is actively dying which has caused him a significant amount of stress and attributes this to breakthrough of atrial fibrillation to that. He did rule out for an NE and his thyroid is normal. [facility] Disclaimer: The information contained in this section may have been updated after the patient was seen, as this information can be updated by other users. Medical History (Updated 07/11/23 @ 12:53 by Ioana Vieira DO) Pleural effusion Stenosis of carotid artery PAF (paroxysmal atrial fibrillation) HLD (hyperlipidemia) HTN (hypertension) Coronary artery disease Surgical History (Updated 07/11/23 @ 13:35 by Antonina Clay APRN) S/P left atrial appendage ligation S/P CABG x 4 S/P cardiac cath Social History Smoking Status: Former smoker alcohol intake: current current occupational status: employed Travel in the last 8 weeks: Inside the [place] Review of Systems Review of Systems Review of systems:: pertinent systems reviewed and negative unless documented below Constitutional Constitutional: Reports system reviewed and no additional complaints, except as documented Eyes Eyes: Reports system reviewed and no additional complaints, except as documented ENT Ears, Nose, Mouth, and Throat: Reports system reviewed and no additional complaints, except as documented *Cardiovascular Cardiovascular: Reports system reviewed and no additional complaints, except as documented, Denies dyspnea, Reports palpitations and Reports rapid heart rate Comments: Patient denies chest pain but states he had chest discomfort when his heart was racing. *Respiratory Respiratory: Reports system reviewed and no additional complaints, except as documented and Denies dyspnea *Gastrointestinal Gastrointestinal: Reports system reviewed and no additional complaints, except as documented *Genitourinary Genitourinary: Reports system reviewed and no additional complaints, except as documented *Musculoskeletal Musculoskeletal: Reports system reviewed and no additional complaints, except as documented Integumentary/Breasts Skin/Breast: Reports system reviewed and no additional complaints, except as documented *Neurologic Neurologic: Reports system reviewed and no additional complaints, except as documented Psychiatric Psychiatric: Reports system reviewed and no additional complaints, except as documented Endocrine Endocrine: Reports system reviewed and no additional complaints, except as documented and Reports palpitations Hematologic/Lymphatic Hematologic/Lymphatic: Reports system reviewed and no additional complaints, except as documented Allergic/Immunologic Allergic/Immunologic: Reports system reviewed and no additional complaints, except as documented Exam Data for Last 24 hours Vital signs and Labs for Last 24 Hours: Temp Pulse Resp BP Pulse Ox O2 Del Method 97.6 F 89 17 121/81 97 Room Air 07/11/23 12:55 07/11/23 12:55 07/11/23 12:55 07/11/23 12:55 07/11/23 12:30 07/11/23 12:55 Laboratory Results - last 24 hr 07/11/23 09:18: WBC 6.9, RBC 4.90, Hgb 14.9, Hct 44.5, MCV 90.8, MCH 30.3, MCHC 33.4, RDW 13.3, Plt Count 153, MPV 8.9, Neut % (Auto) 58.7, Lymph % (Auto) 29.8, [place] % (Auto) 6.7, Eos % (Auto) 3.7, Baso % (Auto) 1.0, Neut # (Auto) 4.1, Lymph # (Auto) 2.1, [place] # (Auto) 0.5, Eos # (Auto) 0.3, Baso # (Auto) 0.1, PT 11.2, INR 1.04, APTT 26.3, Sodium 142, Potassium 3.4 L, Chloride 104, Carbon Dioxide 28, Anion Gap 13.4, BUN 12, Creatinine 1.00, Estimated Creat Clear 70, Estimated GFR 74, Est GFR ( Amer) 90, Glucose 113 H, Calcium 9.6, Magnesium 1.9, Total Bilirubin 1.3, AST 35, ALT 32, Alkaline Phosphatase 82, Troponin I < 0.01, NT-Pro-B Natriuret Pep 461 H, Total Protein 7.2, Albumin 4.5, Globulin 2.7, Albumin/Globulin Ratio 1.7, TSH 1.62, Thyroxine (T4) 9.3 07/11/23 12:00: Troponin I < 0.01 I & O for Last 24 hours: Intake & Output 07/08/23 07/09/23 07/10/23 07/11/23 23:59 23:59 23:59 23:59 Intake Total 1175 / 1175 Balance 1175 / 1175 Weight 157 lb Constitutional Constitutional: no acute distress and average body habitus *Routine HEENT Exam Head: Present normocephalic and atraumatic ENT: Present mucous membranes moist *Routine Neck Exam Neck: Present supple, full ROM and normal carotid upstroke; Absent JVD, carotid bruit or lymphadenopathy *Routine Respiratory Exam Respiratory: Present CTA bilaterally, normal respiratory effort, able to speak in complete sentences and symmetric chest movement *Routine Cardiovascular Exam Cardiovascular: Present Normal S1, Normal S2 and irregularly irregular; Absent murmur or gallop *Routine Abdominal Exam Abdominal: Present soft and normoactive bowel sounds; Absent tenderness, distended or organomegaly *Routine Extremities Exam Extremities: Present full ROM, pulses intact and normal capillary refill; Absent cyanosis, clubbing or edema *Routine Skin Exam Skin: Present intact and warm; Absent erythema *Routine Neurological Exam Neurological: Present alert, oriented X3 and CN II-XII intact; Absent sensory deficit or motor deficit Routine Psychiatric Exam Psychiatric: Present normal affect Meds Home Medications and Allergies Home Medications Medication Instructions Recorded Confirmed Type aspirin 81 mg capsule 81 mg PO DAILY heart health #90 06/12/22 06/13/23 Rx caps bisacodyl 5 mg tablet,delayed 5 mg PO HS 06/12/22 06/13/23 History release (Gentle Laxative (bisacodyl)) fexofenadine 180 mg tablet 180 mg PO DAILY 06/12/22 06/13/23 History (Allergy Relief (fexofenadine)) furosemide 40 mg tablet 40 mg PO DAILY PRN edema #90 tabs 06/12/22 06/13/23 Rx multivitamin (Daily Multi-Vitamin 1 tab PO DAILY 06/12/22 06/13/23 History tablet) metoprolol tartrate 25 mg tablet 12.5 mg (1/2 x 25 mg) PO BID #180 09/12/22 06/13/23 Rx tabs tamsulosin 0.4 mg capsule See Rx Instructions .Route 06/13/23 Rx .COMPLEX #90 caps atorvastatin 80 mg tablet 80 mg PO HS #90 tabs 06/14/23 Rx metoprolol tartrate 25 mg tablet 25 mg PO BID #60 tabs 07/11/23 Rx New Prescriptions to Start Prescriptions: metoprolol tartrate Ioana Vieira Allergies Allergy/AdvReac Type Severity Reaction Status Date / Time No Known Allergies Allergy Verified 06/13/23 09:25 Assessment and Plan *Assessment and plan (1) Atrial fibrillation with RVR: Status: Acute Category: Medical Code(s): I48.91 - Unspecified atrial fibrillation (2) Hypokalemia: Status: Acute Category: Medical Code(s): E87.6 - Hypokalemia (3) Coronary artery disease: Status: Acute Qualifiers: Coronary Disease-Associated Artery/Lesion type: [place] artery [place] vs. transplanted heart: [place] heart Associated angina: without angina Qualified Code(s): I25.10 - Atherosclerotic heart disease of [place] coronary artery without angina pectoris Category: Medical Code(s): I25.10 - Atherosclerotic heart disease of [place] coronary artery without angina pectoris (4) S/P CABG x 4: Problem Comment: (2022) SVG to OM1/OM2 SVG to pDA FARMER to LAD Status: Chronic Category: Surgical Code(s): Z95.1 - Presence of aortocoronary bypass graft (5) HTN (hypertension): Status: Acute Qualifiers: Hypertension type: unspecified Qualified Code(s): I10 - Essential (primary) hypertension Category: Medical Code(s): I10 - Essential (primary) hypertension (6) HLD (hyperlipidemia): Status: Acute Qualifiers: Hyperlipidemia type: unspecified Qualified Code(s): E78.5 - Hyperlipidemia, unspecified Category: Medical Code(s): E78.5 - Hyperlipidemia, unspecified (7) S/P left atrial appendage ligation: Status: Acute Category: Surgical Code(s): Z98.890 - Other specified postprocedural states Plan Plan: 1. The patient presented to the emergency department with complaints of racing of the heart and chest discomfort. He has ruled out for an NE with a negative troponin x 2. 2. The patient was found to be in atrial fibrillation with RVR. He was given oral metoprolol and 2 doses of IV metoprolol without improvement in his heart rate. He was then given a diltiazem bolus and was going to be started on a diltiazem drip but he did rate control after being given the bolus and the drip was not started. He is currently in atrial fibrillation with his rate in the 60s. We do recommend to admit the patient so we can ensure rate control for approximately 24 hours but the patient does decline at this time because his dog is dying at home and he states that he needs to get home to be with his dog. 3. It is reasonable to discharge the patient since he is now rate controlled. Will increase his metoprolol to 25 mg p.o. twice daily for suppression of his atrial fibrillation. 4. We will see the patient back in cardiology clinic next week. If he remains in atrial fibrillation at that time we will need to consider JONNA and cardioversion. The patient declined JONNA and cardioversion this morning. The patient has verbalized understanding. 5. Coronary artery disease is likely stable. He denies any chest pain or pressure since he is rate controlled and as mentioned above his troponin is negative. Continue aspirin. 6. His blood pressure is well-controlled. 7. His LDL goal is less than 55. His LDL was 62 in June of this year. He is on a statin. 8. The patient is not on long-term anticoagulation as his atrial fibrillation has been paroxysmal and he is status post left atrial appendage ligation in 2022. 9. The patient is stable for discharge home today from the emergency department with follow-up next Sunday on July 16 at 1 PM in cardiology clinic. He will need to increase his metoprolol to 25 mg p.o. twice daily. Thank you for the opportunity to help participate in the care of this patient. All recommendations and orders are per Dr. Muñoz.
== END 2023-07-11 13:05 | disposition home or self-care (01) ==
PROVIDERS: Emergency Provider Emergency Medicine
DX: I48.91 Unspecified atrial fibrillation (principal); E87.6 Hypokalemia; I25.10 Atherosclerotic heart disease of native coronary artery without angina pectoris; I10 Essential (primary) hypertension; E78.5 Hyperlipidemia, unspecified; R07.89 Other chest pain; Z95.1 Presence of aortocoronary bypass graft; Z87.891 Personal history of nicotine dependence
CPT/HCPCS: 71045; 80053; 83735; 83880; 84436; 84443; 84484; 85025; 85610; 85730; 93005; 96365; 96366; 96375; 99291; J7120

== ENCOUNTER 2023-07-26 15:00 | Outpatient (CLI) | payer MEDICARE, SELFPAY ==
--- NOTE | 2023-07-26 15:01 | CA_ITS ---
APPROVED REPORT EXAM: Comprehensive 2D, Doppler, and color-flow Echocardiogram Director Chemistry: ESME Donovan, RVS Ht: 5 ft 7 in Wt: 158lbs BSA: 1.83 BP: 118/70 mmHg Indications: Afib, CABG, CAD, HTN, SOA, Dizziness, Ex-smoker 2D Dimensions Left Atrium 4.00 cm LA Volume 41.30 mL LA Volume Index 22.10 mL/m2 (M/F) 16-34 M-Mode Dimensions RVDd 2.21 cm (0.9-2.6) LA Diam 4.50 cm (1.9-4.0) LVDd 5.79 cm (3.5-5.7) LVDs 4.00 cm (3.5-5.7) IVSd 0.91 cm (0.6-1.1) PWd 0.99 cm (0.6-1.1) EF (Teich) 57.80% EPSs 1.30 cm FS 30.90% EDV (Teich) 165.90 mL TAPSE 1.52 (<1.7) ESV (Teich) 70.00 mL LV Diastology E Decel Time 177 (160-240 msec) E/A Ratio 4.53 MED A' 2.80 cm/s LAT A' 6.50 cm/s Aortic Valve HAYES Index 1.90 cm2/m2 AoV Peak Leonel. 86.0 (50-130 cm/s) AO Peak GR. 3.00 mmHg AO Mean GR. 1.50 (<5 mmHg) AO VTI 14.7 (18-25 cm) HAYES (VTI) 3.55 (2.5-4.5 cm2) Mitral Valve MV A Velocity 22.0 (40-130 cm/s) E/A Ratio 4.53 Pulmonary Valve PV Peak Velocity 79.0 (50-150 cm/s) Tricuspid Valve TR P. Velocity 183.00 cm/s RAP Estimate 10.00 mmHg RVSP 23.30 mmHg Left Ventricle The left ventricle is normal size. The left ventricular systolic function is normal. The left ventricular ejection fraction is within the normal range. There is increased LV wall thickness. There is normal LV segmental wall motion. Diastolic dysfunction is indeterminate. LVEF is 55%. Right Ventricle Right ventricle is mildly dilated. Right ventricle is mildly hypokinetic. Atria Left atrium is mildly dilated. The right atrium size is normal. There is no Doppler evidence of interatrial shunt. Aortic Valve The aortic valve opens well. The aortic valve is trileaflet. There is no aortic valvular stenosis. No aortic regurgitation is present. Mitral Valve The mitral valve is mildly thickened. No evidence of mitral valve stenosis. Mild to moderate mitral regurgitation. Tricuspid Valve The tricuspid valve leaflets are thin and pliable. Mild tricuspid regurgitation. RVSP is 20-25 mmHg. Pulmonic Valve The pulmonic valve is grossly normal in structure. Trace pulmonic regurgitation. Great Vessels The aortic root is normal in size. The ascending aorta is normal in size. IVC is normal in size and collapses >50% with inspiration. Pericardium There is no pericardial effusion. Other Information Study Quality: Fair Conclusion Normal LV systolic function. Mildly dilated RV with mild reduction in RV function. Mild LA dilation. Mild to moderate MR. Mild TR. Electronically signed by : Herlinda Muñoz MD 07/31/2023 11:26:57
== END 2023-07-26 23:59 | disposition home or self-care (01) ==
LOC: RT 15:01
PROVIDERS: Visit Provider Internal Medicine
DX: I48.0 Paroxysmal atrial fibrillation (principal); R00.1 Bradycardia, unspecified; I65.29 Occlusion and stenosis of unspecified carotid artery; I11.9 Hypertensive heart disease without heart failure; I25.10 Atherosclerotic heart disease of native coronary artery without angina pectoris; E78.5 Hyperlipidemia, unspecified; Z95.1 Presence of aortocoronary bypass graft; Z87.891 Personal history of nicotine dependence
CPT/HCPCS: 93306

== ENCOUNTER 2024-08-13 13:31 | Outpatient (CLI) | payer MEDICARE, SELFPAY ==
--- OUTSIDE RECORDS SUMMARY | 2024-08-13 13:33 | XMS_ITS | Clinical Summary ---
Author Organization [facility] Address [address] [place] [address] Care Team Providers Care Customer Solutions Supervisor Name Role Phone Rafa Power MD Primary Care Provider [phone] Aneesh Cowan MD Unavailable [phone] Allergies No known active allergies Medications aspirin 81 MG EC tablet Take 81 mg by mouth 1 (one) time each day. Active Multiple Vitamin (multivitamin) tablet Take 1 tablet by mouth 1 (one) time each day. Active acetaminophen (Tylenol) 500 MG tablet Take 1 tablet (500 mg total) by mouth every 6 (six) hours if needed for pain, headaches or fever. 100 tablet 3 Active amiodarone (Pacerone) 200 MG tablet Take 1 tablet (200 mg total) by mouth 1 (one) time each day. This medication begins on 05/04 after you complete the 400 mg dosing 30 tablet 1 3 Active atorvastatin (Lipitor) 80 MG tablet Take 1 tablet (80 mg total) by mouth every night. 30 tablet 2 3 Active metoprolol tartrate 37.5 MG tablet Take 37.5 mg by mouth 2 (two) times a day. 60 tablet 2 3 Active tamsulosin (Flomax) 0.4 MG 24 hr capsule Take 1 capsule (0.4 mg total) by mouth 1 (one) time each day with dinner. 30 capsule 2 3 Active furosemide (Lasix) 40 MG tablet Take one tablet daily for three consecutive days, then weigh yourself daily. If you have a two pound weight gain for two consecutive days resume one tablet daily 14 tablet Active Active Problems Problem Noted Date Diagnosed Date BMI 24.0-24.9, adult 05/05/2022 Pleural effusion 04/27/2022 Overview (05/19/2022): Moderate L, small R Anisocoria 04/26/2022 Hypertension 04/26/2022 Acute postoperative anemia due to expected blood loss 04/22/2022 CAD (coronary artery disease) 04/21/2022 Atrial fibrillation 04/21/2022 GERD (gastroesophageal reflux disease) Hemorrhoids 04/21/2022 Resolved Problems Problem Noted Date Diagnosed Date Resolved Date Hypomagnesemia 04/27/2022 05/05/2022 Abnormal platelet function test 04/26/2022 05/01/2022 Palpitations 04/26/2022 05/01/2022 Volume overload 04/26/2022 05/01/2022 Thrombocytopenia 04/26/2022 05/01/2022 Leukocytosis 04/26/2022 05/01/2022 Hyponatremia 04/26/2022 05/01/2022 Hypophosphatemia 04/26/2022 05/01/2022 Hyperphosphatemia 04/26/2022 05/01/2022 Hypermagnesemia 04/26/2022 05/01/2022 Transient hyperglycemia post procedure 04/26/2022 05/01/2022 Hypokalemia 04/26/2022 05/01/2022 Hypocalcemia 04/26/2022 05/05/2022 Acute respiratory failure with hypoxia 04/22/2022 05/01/2022 Rectal bleeding 04/21/2022 04/21/2022 Former smoker 04/21/2022 05/01/2022 Overview (04/21/2022): Quit over 30 years ago Smoked 1ppd for 18 years Sinus bradycardia 04/21/2022 05/01/2022 Overview (04/22/2022): - Per patient, he has been bradycardiac in 40-50s since COVID in fall 2021. Prior to COVID, HR was in normal range - monitor for now ACS (acute coronary syndrome) 04/21/2022 05/01/2022 Overview (04/22/2022): -unstable angina s/p mobile lab technician at OSH -now s/p CABGx4 on 04/22 -hep, NTG gtts as needed Chest pain 04/20/2022 05/01/2022 Overview (04/22/2022): - unstable angina - now s/p CABG on 04/22 Rectal bleeding 04/20/2022 04/26/2022 Overview (04/21/2022): Added automatically from request for surgery [id number] COVID 04/20/2022 05/05/2022 Family History Medical History Relation Name Comments Prostate cancer Brother Atrial fibrillation Sister Ovarian cancer Sister Relation Name Status Comments Brother Sister Social History Tobacco Use Types Packs/Day Years Used Date Smoking Tobacco: Former Cigarettes 0.8 15 1 978 - 1992 Passive Smoke Exposure: Past Smokeless Tobacco: Never Tobacco Cessation:Counseling Given: Not Answered Alcohol Use Standard Drinks/Week Comments Never 0 (1 standard drink = 0.6 oz pur e alcohol) CAGE ASSESSMENT Answer Date Recorded Cage unable to access Not on file 04/27/2022 Cage max number of drinks Not on file 2022 Cage Beverages a week Not on file 04/27/2022 Have you ever felt you should CUT down on your d rinking? 0 04/27/2022 Have you been ANNOYED by people criticizing your drinking? 0 04/27/2022 Have you felt GUILTY about your drinking? 0 04/27/2022 Have you had a drink first t claus in the morning ([employer]IL[employer]FTSM[employer]) to steady your nerves or to get rid of a hangover? 0 04/27/2022 CAGE Questionnaire Score 0 023 Sex and Gender Information Value Date Recorded Sex Assigned at Not on file Legal Sex Male 8:12 PM EST Gender Identity Not on file Sexual Orientation Not on file Occupation Industry Job Start Date Job End Date retired self-employed Not on file Not on file Not on file Last Filed Vital Signs Vital Sign Reading Time Taken Comments Blood Pressure 112/68 05/18/2022 1:01 PM EDT Pulse 62 05/18/2022 1:01 PM EDT Temperature 37.2 C (99 F) 05/01/2022 12:05 PM EDT Respiratory Rate 20 05/01/2022 12:05 PM EDT Oxygen Saturation 98% 05/18/2022 1:01 PM EDT Inhaled Oxygen Concentration - - Weight 72.1 kg (159 lb) 05/18/2022 1:01 PM EDT Height 172 cm (5' 7.72 ) 04/22/2022 7:22 AM EST Body Mass Index 24.38 04/22/2022 7:22 AM EST Plan of Treatment Health Maintenance Due Date Last Done Comments [facility]-Depression Screening 1954 [facility]-Hepatitis C Screening 1955 [facility]-Medicare Annual Wellness (AWV) 1955 [facility]-Infant/Child/Adol SDOH Screenings 1954 [facility]- SDOH Screenings 1972 [facility]-Adult SDOH Screenings 1972 [facility]-DTaP,Tdap,and Td Vaccine s (1 - Tdap) 1973 CT Colonography 04/29/1999 Colonoscopy 04/29/1999 FIT-DNA 04/29/1999 FIT 04/29/1999 FOBT 04/29/1999 Sigmoidoscopy 04/29/1999 [facility]-Colorectal Cancer Screening 04/29/1999 [facility]-Pneumococcal Vaccine: 50 + Years (1 of 1 - PCV) 2004 [facility]-Zoster Vaccines (1 of 2) 2004 [id number] Vaccine (1 - 20 24-25 season) 2023 [facility]-Influenza Vaccine ([place] n Ended) 2024 [facility]-RSV Vaccine: 60+ Years o r (1 - 1-dose 75+ series) 2029 HPV Vaccines Aged Out No longer eligi ble based on patient's age to complete this topic [facility]-HIB Vaccines Aged Out No longer e ligible based on patient's age to complete this topic [facility]-Hepatitis A Vaccines Aged Out No longer eligible based on patient's age to complete this topic [facility]-IPV Vaccines Aged Out No longer e ligible based on patient's age to complete this topic [facility]-Rotavirus Vaccines Aged Out No lo nger eligible based on patient's age to complete this topic Medical Devices Implanted Type Area Cut Off Saw Operator Device Identifier Shelf Expiration Date Model / Serial / Lot At[employer]lip Flex V 40mm - [id number] Implanted:Qty: 1 on 04/22/2022 by Rafa Pecae MD at [facility] [id number] 02/12/2025 [id number] / / [id number] Insurance [facility] MEDICARE Advance Directives * Full Code (Latest Code Status on File) Date Activated Date Inactivated Comments 04/22/2022 1:45 PM 05/01/2022 5:49 PM Question Answer Comments Patient has decision-making capacity? Yes Care Teams Customer Solutions Supervisor Relationship Specialty Start Date End Date Rafa Power MD [address] [place] [address] PCP - General 03/15/22 Aneesh Cowan MD [address] [facility] [address] [place] [address] Referring Physician Cardiology 04/21/22
--- OUTSIDE RECORDS SUMMARY | 2024-08-13 13:33 | XMS_ITS | Encounter Summary ---
Author Organization Healthcare Address [address] [place] [address] Care Team Providers Care Airplane Pilot Photogrammetry Name Role Phone Rafa Power MD Primary Care Provider + [phone] Aneesh Cowan MD Unavailable [phone] Encounter Details Date Type Department Care Team (Late st Contact Info) Description 04/24/2022 Lab Requisition [facility] [address] [place] [address] Jerrod Escoto MD [address] [place] [address] Encounter for general adult medical examination without abnormal findings Social History Tobacco Use Types Packs/Day Years Used Date Smoking Tobacco: Never Assessed CAGE ASSESSMENT Answer Date Recorded Cage unable [...] drink first t claus in the morning (EYE-TAXONOMIST) to steady your nerves or to get rid of a hangover? 0 04/27/2022 CAGE Questionnaire Score 0 023 Sex and Gender Information Value Date Recorded Sex Assigned at Not on file Legal Sex Male 8:12 PM EST Gender Identity Not on file Sexual Orientation Not on file COVID-19 Exposure Response Date Recorded In the last 10 days, have ebonie u been in contact with someone who was confirmed or suspected to have Coronavirus/COVID-19? No / Unsure 04/27/2022 10:27 AM EDT documented as of this encounter Functional Status * Calculated C-SSRS Risk Score (Lifetime/Recent) Answer Date of Assessment Author No Risk Indicated 04/27/2022 8:00 AM EDT Blanche Chambers RN * Question Answer Date of Assessment Author 1. Wish to be (Past 1 Month) No 023 8:00 AM EDT Chino Chambers RN 2. Non-Specific Active Suici alex Thoughts (Past 1 Month) No 04/27/2022 8:00 AM EDT Chino Chambers RN 6. Suicidal Behavior (Lifetime) No 8:00 AM EDT Chino Chambers RN documented as of this encounter Plan of Treatment Not on file documented as of this encounter Procedures Procedure Name Priority Date/Time Associated Diagnosis Comments MULTI DRUG RESISTANCE TEST Routine 04/24/2022 5:00 PM EDT Encounter for general adult medical examination without abnormal findings documented in this encounter Results * Multi Drug Resistance Test (04/24/2022 5:00 PM EDT) Culture No growth at day 2 04/26/2022 2:56 PM EDT [facility] Swab (Nares and Lelo Rectal) 04/24/2022 5:00 PM EDT 04/24/2022 5:46 PM EDT Jerrod Wynne MD LAB MICROBIOLOGY - GENERAL ORDERABLES Final Result [facility] [address] [place] [address] documented in this encounter Visit Diagnoses Diagnosis Encounter for general adult medical examination without abnormal findings documented in this encounter Additional Health Concerns Infection Onset Date Last Indicated Resolved Time COVID 19 (Confirmed) Comment:IPA has verified patient has a COVID-19 positive result. A chart review has been completed, EPI PUI has been completed and sent to appropriate Health Dept. IPAC Major Assembly Inspector: Judith Newby 04/22/2022 04/22/2022 023 5:23 AM EDT documented as of this encounter Care Teams Airplane Pilot Photogrammetry Relationship Specialty Start Date End Date Rafa Power MD [address] [place] [address] PCP - General 03/15/22 Aneesh Cowan MD [address] [place] [address] Referring Physician Cardiology 04/21/22 documented as of this encounter
[2024-08-13 14:09] LABS: Hematocrit 40.0 % (42.0-52.0); Hemoglobin 12.9 g/dL (14.1-18.0); Immature Granulocytes % 0.3 %; Mean Corpuscular HGB Conc 32.3 g/dL (31.8-35.4); Mean Corpuscular Hemoglobin 29.1 pg (27.0-31.2); Mean Corpuscular Volume 90.3 fl (80-94); Nucleated Red Blood Cells % 0 %; Platelet Count 144 K/mm3 (142-424); Red Blood Count 4.43 M/mm3 (4.60-6.20); Red Cell Distribution Width-SD 40.1 fL; White Blood Count 6.2 K/mm3 (4.8-10.8)
[2024-08-13 14:28] LABS: Albumin Level 4.2 g/dl (3.5-5.0); Chloride 104 mmol/L (98-107); Potassium 5.2 mmoL/L (3.5-5.1); Sodium 141 mmol/L (136-145)
[2024-08-13 14:30] LABS: Alanine Aminotransferase 28 U/L (12-78); Aspartate Amino Transferase 29 U/L (17-59); Bilirubin,Unconjugated 0.8 mg/dL (0.0-1.1); Blood Urea Nitrogen 12 mg/dl (9-20); Creatinine,Serum 0.90 mg/dl (0.66-1.25); Estimated Glomerular Filt Rate 83 ml/min (>60); GFR (African American) 101 ML/MIN (>60)
[2024-08-13 14:31] LABS: Alkaline Phosphatase 65 U/L (38-126); Anion Gap 11.2 mEq/L (5-15); Bilirubin,Direct 0.1 mg/dl (0.0-0.4); Bilirubin,Indirect 0.8 mg/dL (0.0-0.9); Bilirubin,Total 0.9 mg/dl (0.2-1.3); Calcium 9.5 mg/dl (8.4-10.2); Carbon Dioxide 31 mmol/L (22.0-30.0); Cholesterol 131 mg/dl (140-200); Glucose 87 mg/dl (74-100); HDL Cholesterol 44 mg/dl (40-60); Total Protein,Serum 6.4 g/dl (6.3-8.2); Triglycerides 142 mg/dl (30-150)
== END 2024-08-13 23:59 | disposition home or self-care (01) ==
LOC: LAB 15:44
PROVIDERS: Visit Provider Internal Medicine
DX: I25.10 Atherosclerotic heart disease of native coronary artery without angina pectoris (principal); I10 Essential (primary) hypertension
CPT/HCPCS: 36415; 80048; 80061; 80076; 85025

== ENCOUNTER 2024-08-26 09:30 | Outpatient (CLI) | payer MEDICARE, SELFPAY ==
--- OUTSIDE RECORDS SUMMARY | 2024-08-26 09:33 | XMS_ITS | Clinical Summary ---
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 -hep, NTG gtts as needed Chest pain 04/20/2022 05/01/2022 Overview (04/22/2022): - unstable angina - now s/p CABG on 04/22 Rectal bleeding 04/20/2022 04/26/2022 Overview (04/21/2022): Added automatically from request for surgery [id number] COVID 04/20/2022 05/05/2022 Family History Medical History [...] drink first t claus in the morning (EYE-ANALOG IC DESIGN ENGINEER) to steady your nerves or to get [...] 2004 [facility]-Zoster Vaccines (1 of 2) 2004 [id number]-79 Vaccine (1 - 20 24-25 season) 2023 [facility]-Influenza Vaccine (#1) 2024 [facility]-RSV Vaccine: 60+ Years o r [...] this topic Medical Devices Implanted Type Area Thin Film Technician Device Identifier Shelf Expiration Date Model / Serial / Lot [employer] Flex V 40mm - [id number] Implanted:Qty: 1 on 04/22/2022 by Rafa Peace MD at [facility] [id number] 02/12/2025 [id number] / / [id number] Insurance [facility] MEDICARE Advance Directives * Full Code (Latest Code Status on File) Date Activated Date Inactivated Comments 04/22/2022 1:45 PM 05/01/2022 5:49 PM Question Answer Comments Patient has decision-making capacity? Yes Care Teams Police Officer Relationship Specialty Start Date End Date Rafa Power MD [address] [place] [address] PCP - General 03/15/22 Aneesh Cowan MD [address] [address] Referring Physician Cardiology 04/21/22
--- OUTSIDE RECORDS SUMMARY | 2024-08-26 09:33 | XMS_ITS | Encounter Summary ---
Author Organization Healthcare Address [address] [place] [address] Care Team Providers Care Guest Relations Receptionist Name Role Phone Rafa Power MD Primary Care Provider + [phone] Aneesh Cowan MD Unavailable [phone] Encounter Details Date Type Department Care Team (Late st Contact Info) Description 04/24/2022 Lab Requisition [facility] [address] [place] [address] Jerrod Escoto MD [address] [place] [address] Encounter for general adult medical [...] drink first t claus in the morning (EYE-BIOMECHANICAL ENGINEER) to steady your nerves or to [...] at day 2 04/26/2022 2:56 PM EDT [facility] Swab (Nares and Lelo Rectal) 04/24/2022 5:00 PM EDT 04/24/2022 5:46 PM EDT Jerrod Wynne MD LAB MICROBIOLOGY - GENERAL ORDERABLES Final Result [facility] [address] [place] [address] documented in this encounter Visit Diagnoses Diagnosis Encounter for general adult medical examination without abnormal findings documented in this encounter Additional Health Concerns Infection Onset Date Last Indicated Resolved Time COVID 19 (Confirmed) Comment:IPA has verified patient has a COVID-19 positive result. A chart review has been completed, EPI PUI has been completed and sent to appropriate Health Dept. IPAC Route Sales Driver: Judith Newby 04/22/2022 04/22/2022 023 5:23 AM EDT documented as of this encounter Care Teams Guest Relations Receptionist Relationship Specialty Start Date End Date Rafa Power MD [address] [place] [address] PCP - General 03/15/22 Aneesh Cowan MD [address] [place] [address] Referring Physician Cardiology 04/21/22 documented as of this encounter
[2024-08-26 10:13] LABS: Hematocrit 40.6 % (42.0-52.0); Hemoglobin 13.2 g/dL (14.1-18.0); Immature Granulocytes % 0.5 %; Mean Corpuscular HGB Conc 32.5 g/dL (31.8-35.4); Mean Corpuscular Hemoglobin 28.9 pg (27.0-31.2); Mean Corpuscular Volume 89.0 fl (80-94); Nucleated Red Blood Cells % 0 %; Platelet Count 129 K/mm3 (142-424); Red Blood Count 4.56 M/mm3 (4.60-6.20); Red Cell Distribution Width-SD 40.8 fL; White Blood Count 5.9 K/mm3 (4.8-10.8)
== END 2024-08-26 23:59 | disposition home or self-care (01) ==
LOC: LAB 09:31
PROVIDERS: Visit Provider Nurse Practitioner Family
DX: D64.9 Anemia, unspecified (principal)
CPT/HCPCS: 36415; 85025